=== PATIENT | female | born 1945 | race Caucasian/White ===

== ENCOUNTER 2018-08-03 19:53 | Emergency (ER) | payer MEDICARE, OTHER, MEDICAID ==
[2018-08-03] MEDS: KETOROLAC 30 MG INJ IM (20:51)
== END 2018-08-03 21:39 | disposition home or self-care (01) ==
LOC: E/R 19:53
DX: M17.11 Unilateral primary osteoarthritis, right knee (principal); M25.461 Effusion, right knee; I10 Essential (primary) hypertension; I25.10 Atherosclerotic heart disease of native coronary artery without angina pectoris; E66.9 Obesity, unspecified; Z98.61 Coronary angioplasty status; Z68.30 Body mass index [BMI] 30.0-30.9, adult
CPT/HCPCS: 73562; 93971; 96372; 99285-25